=== PATIENT | male | born 1970 | race African-American/Black ===

== ENCOUNTER 2025-07-12 13:44 | Emergency (ER) | payer MEDICAID ==
[~2025-07-12] VITALS: Ht 170.2 cm; Wt 86.0 kg
[2025-07-12 13:45] VITALS: TEMP 36.9; O2SAT 100
[2025-07-12 15:51] LABS: CLARITY URINE CLOUDY (CLEAR); COLOR URINE DARK YELLOW (YELLOW); GLUCOSE URINE NEGATIVE (NEGATIVE); KETONES URINE TRACE (NEGATIVE); PH URINE 6.5 (4.5-8.0); PROTEIN URINE TRACE (NEGATIVE); SPECIFIC GRAVITY URINE 1.019 (1.005-1.030)
[2025-07-12 15:52] LABS: LEUKOCYTE ESTERASE URINE 1+ (NEGATIVE); NITRITE URINE POSITIVE (NEGATIVE); OCCULT BLOOD URINE 2+ (NEGATIVE); UROBILINOGEN URINE 1.0 E.U./dL (0.2-1.0)
[2025-07-12 15:54] LABS: BACTERIA URINE 3+; SQUAMOUS EPITHELIAL CELL URINE FEW /lpf (RARE/1+)
[2025-07-12] MEDS ORDERED: CEFP200T13 MT (16:02)
[2025-07-12 16:59] VITALS: BP 134/86; PULSE 77; RESP 14; O2SAT 100
== END 2025-07-12 17:00 | disposition home or self-care (01) ==
LOC: ER 14:24
DX: N39.0 Urinary tract infection, site not specified (principal); R33.8 Other retention of urine
CPT/HCPCS: 51702; 81003; 99284

== ENCOUNTER 2025-07-24 11:24 | Emergency (ER) | payer MEDICAID ==
[~2025-07-24] VITALS: Ht 175.3 cm; Wt 82.0 kg
[~2025-07-24 11:24] MED LIST: CEFP200T13 MT
[2025-07-24 11:40] VITALS: BP 129/72; TEMP 36.7; O2SAT 99
[2025-07-24 11:42] VITALS: PULSE 64; RESP 18; O2SAT 99
== END 2025-07-24 13:05 | disposition home or self-care (01) ==
LOC: ER 11:24
DX: Z46.6 Encounter for fitting and adjustment of urinary device (principal); I10 Essential (primary) hypertension
CPT/HCPCS: 99282